=== PATIENT | male | born 1980 | race Caucasian/White ===

== ENCOUNTER 2018-03-09 00:43 | Emergency (ER) | END 2018-03-09 09:26 | disposition home or self-care (01) | DX: F10.129 Alcohol abuse with intoxication, unspecified (principal); R94.31 Abnormal electrocardiogram [ECG] [EKG]; E10.9 Type 1 diabetes mellitus without complications | CPT/HCPCS: 36415; 70450; 71045; 80048; 80076; 82009; 82140; 83605 ×2; 84443; 84484; 85025; 85730; 87040 ×2; 93005; 99284; G0480 ×2; G0481 ==